=== PATIENT | male | born 1980 | race Caucasian/White ===

== ENCOUNTER → 2019-01-05 | Day surgery (SDC) | payer OTHER ==
[2018-12-29 13:42] LABS: BASOPHILS # (AUTO) 0.1 (0.0-0.1); BASOPHILS % 0.6 % (0.0-1.0); EOSINOPHILS # (AUTO) 0.3 (0.0-0.4); EOSINOPHILS % 3.3 % (0.0-6.0); HEMATOCRIT 44.4 % (38.2-49.6); HEMOGLOBIN 15.5 g/dL (14.0-18.0); LYMPHOCYTES # (AUTO) 2.2 (1.0-3.2); LYMPHOCYTES % 26.2 % (18.0-39.1); MEAN CORPUSCULAR HEMOGLOBIN 32.1 pg (28-32); MEAN CORPUSCULAR HGB CONC 34.9 g/dL (31-35); MEAN CORPUSCULAR VOLUME 91.9 fL (81-99); MONOCYTES # (AUTO) 0.5 (0.2-0.8); MONOCYTES % 6.2 % (4.4-11.3); NEUTROPHILS # (AUTO) 5.2 (2.1-6.9); NEUTROPHILS % 63.3 % (38.7-80.0); PLATELET COUNT 300 x10e3/uL (140-360); RED BLOOD COUNT 4.83 x10e6/uL (4.3-5.7); RED CELL DISTRIBUTION WIDTH 13.1 % (11.7-14.4)
[2018-12-29 14:06] LABS: ALANINE AMINOTRANSFERASE 54 IU/L (0-55); ALBUMIN 4.3 g/dL (3.5-5.0); ALBUMIN/GLOBULIN RATIO 1.5 (0.8-2.0); ALKALINE PHOSPHATASE 73 IU/L (40-150); ANION GAP 6.9 mmol/L (8-16); BLOOD UREA NITROGEN 12 mg/dL (7-26); BUN/CREATININE RATIO 11 (6-25); CALCIUM 9.6 mg/dL (8.4-10.2); CARBON DIOXIDE 24 mmol/L (22-29); CHLORIDE 104 mmol/L (98-107); CREATININE, SERUM 1.13 mg/dL (0.72-1.25); EST GLOMERULAR FILTRATION RATE > 60 ML/MIN (60-); GLUCOSE 104 mg/dL (74-118); POTASSIUM 3.9 mmol/L (3.5-5.1); SODIUM 131 mmol/L (136-145)
--- NOTE | 2018-12-29 14:22 | Diagnostic Imaging Report ---
EXAMINATION: PA and lateral views of the chest. COMPARISON: None CLINICAL HISTORY: Preoperative study for hydrocele resection DISCUSSION: Lungs are well-inflated and without consolidation, pleural effusion, or pneumothorax. Cardiomediastinal contour and pulmonary vasculature are within normal limits. No acute osseous abnormality. IMPRESSION: No acute cardiopulmonary abnormalities. Signed by: Dr. Ramon Talley M.D. on 12/29/2018 2:18 PM
[~2019-01-05] MED LIST: BUPIVACAINE 0.25%/EPI 30ML SDV INJ ONE; BUPIVACAINE LIPOSOME/PF 266 MG/20 ML IJ ONE; CEFAZOLIN SOD 1 GM/NS 50ML 50 ML IV ONE; DEXAMETHASONE SOD PHOS INJ 4 MG/ML VIAL ONE; FENTANYL CITRATE/PF 100MCG/2 ML INJ ONE; FINASTERIDE5 MG PO; KETOROLAC TROMETHAMINE 30 MG/ML VIAL ONE; LIDOCAINE HCL 2% LOCAL INJ 5 ML SDV VIAL INJ ONE; MIDAZOLAM HCL 2 MG/2 ML VIAL ONE; MULTI-VITAMIN1 EACH PO; ONDANSETRON HCL INJ 2MG/ML 2ML 2 MG/ML VIAL ONE; ONE-A-DAY MEN'1 EAC2 PO; PROPOFOL IV EMULSION 10 MG/ML 20 ML VIAL ONE; SEVOFLURANE INHAL SOLN 250 ML PEN BTL ONE
--- OUTSIDE RECORDS SUMMARY | 2019-01-05 05:28 | XMS REPORT ---
[facility] Address Unknown Phone Unavailable Care Team Providers Care Chemical Operator Name Role Phone SUE LOWERY Unavailable Unavailable Payers Payer Name Policy Type Policy Number Effective Date Expiration Date Problems This patient has no known problems. Allergies, Adverse Reactions, Alerts Allergy Name Allergy Type Status Severity Reaction(s) Onset Date Inactive Date Treating Clinician Comments No Known Drug Allergies DA Active U 2005-09-15 00:00:00 Medications This patient has no known medications. Results Test Description Test Time Test Comments Text Results Atomic Results Result Comments CHEST 2 VIEWS 2018-12-29 14:17:00 [place] [address] Patient Name: BYRON SOUZA MR #: [id number] : 1980 Age/Sex: 38/M Req #: [id number] Adm Physician: Ordered by: SUE LOWERY MD Report #: [id number] Location: OR Room/Bed: Procedure: [id number] DX/CHEST 2 VIEWS Exam Date: Exam Time: REPORT STATUS: Signed EXAMINATION: PA and lateral views of the chest. COMPARISON: None CLINICAL HISTORY: Preoperative study for hydrocele resection DISCUSSION: Lungs are well-inflated and without consolidation, pleural effusion, or pneumothorax. Cardiomediastinal contour and pulmonary vasculature are within normal limits. No acute osseous abnormality. IMPRESSION: No acute cardiopulmonary abnormalities. Signed by: Dr. Caro Waters M.D. on 12/29/2018 2:18 PM Dictated By: CARO WATERS MD 1418 Transcribed By: KEELEY on 12/29/18 1418 COPY TO: SUE LOWERY MD
[2019-01-05 09:50] VITALS: BP 129/98
--- NOTE | 2019-01-06 17:44 | Operative Report ---
DATE OF PROCEDURE: 01/05/2019 SURGEON: Jayme Beasley MD PREOPERATIVE DIAGNOSIS: Left hydrocele. POSTOPERATIVE DIAGNOSIS: Left hydrocele. OPERATIONS PERFORMED: Hydrocelectomy, Cho technique. BRIEF HISTORY: A 38-year-old male, comes to the office, complaining of pain in left testicle, left groin. Urine is negative. Found to have a hydrocele, clinically it transilluminates. The patient has had some pain and discomfort, wanted the hydrocele excised and we will bring him to the hospital for that procedure. ESTIMATED BLOOD LOSS: Less than 5 mL. COUNTS: Sponge, needle count and instrument count is correct. PROCEDURE IN DETAIL: The patient was placed in the supine position on the operating table. The legs were supine. The patient was shaved with rashad, prepped with Betadine simple solution and draped in the usual manner. A time-out was obtained. The patient was identified. The left side was also identified and agreed on. Local anesthetic was used throughout the case. In the beginning, anesthetic was placed in the cord as well as in the incision on the scrotum. Incision was made with #10 blade, carried through dartos fascia. Tunica vaginalis was opened without any difficulty. The hydrocele fluid was aspirated. Testicle was delivered through the incision. A rete testis was identified, it was excised. The base was burned and was sent for pathological specimen. It is noted that the epididymus appears to be somewhat beefy red. On the tail of the epididymus, there appears to be some inflammatory response. The rest of the cord appears to be normal. At this point, the multiple sutures were placed through the tunica vaginalis to accordion the tunica to the epididymal testicular junction, which was done without any difficulty all around the testicle with multiple single sutures. After that was done, the testicle was placed back into the sac. The dartos fascia was approximated using 4-0 Monocryl. The skin was also approximated using 4-0 Monocryl with Dermabond on the skin as a dressing. A 10 mL of local anesthetic was then placed again on the cord at this point. The patient was then taken to recovery room in satisfactory condition. DISCHARGE INSTRUCTIONS: The patient was given Talwin NX to take 1 to 2 tablets p.o. q.4 hours p.r.n. as needed for pain and he was given doxycycline to take 100 mg twice daily. He will be seen in the office within 3 weeks. I discussed the case with the as well and she was told to place ice on the scrotum today. MD TERE Kamara/MODL /[id number]
== END | disposition home or self-care (01) ==
LOC: OR 05:25
PROVIDERS: ATTEND Urology
DX: N43.3 Hydrocele, unspecified (principal); Z01.812 Encounter for preprocedural laboratory examination; Z01.811 Encounter for preprocedural respiratory examination
CPT/HCPCS: 36415 ×2; 55040; 71046; 80053; 84295; 85025; 87086; 88302; J0690; J1100; J1885; J2001; J2250; J2405; J2704; 88305